=== PATIENT | female | born 1995 | race African-American/Black ===

== ENCOUNTER 2016-11-28 16:38 | Emergency (ER) | payer OTHER ==
[2016-11-28 16:58] VITALS: BP 138/75
[2016-11-28] MEDS ORDERED: Ibuprofen TAB* 600 MG PO ONE (17:14)
--- NOTE | 2016-11-28 17:14 | UC ---
Hand/Wrist HPI - HPI Summary HPI Summary: Broke up a fight between here to dogs this afternoon---multiple bites to both hand - History Of Current Complaint Chief Complaint: UCBiteInjury Stated Complaint: DOG BITE Time Seen by Provider: 11/28/16 17:10 Hx Obtained From: Patient Hx Last Menstrual Period: 11/24 ?: No Mechanism Of Injury: dog bites Onset/Duration: Sudden Onset, Lasting Hours, Still Present Severity Initially: Moderate Severity Currently: Moderate Pain Intensity: 7 Pain Scale Used: 0-10 Numeric Character Of Pain: Aching Aggravating Factor(s): Movement Alleviating: Rest Associated Signs And Symptoms: Positive: Negative Related History: Dominant Hand Right - Allergies/Home Medications Allergies/Adverse Reactions: Allergies Allergy/AdvReac Type Severity Reaction Status Date / Time No Known Allergies Allergy Verified 11/28/16 16:57 PMH/Surg Hx/FS Hx/Imm Hx Previously Healthy: Yes - Surgical History Surgical History: None - Family History Known Family History: Positive: None - Social History Occupation: Employed Full-time Lives: With Family Alcohol Use: Rare Substance Use Type: None Smoking Status (MU): Never Smoked Tobacco - Immunization History Hx Tetanus, Diphtheria Vaccination: Yes Vaccination Up to Date: Yes Review of Systems Constitutional: Negative Skin: Other - multiple small laceration and pw to both hand laceration left wrist Eyes: Negative ENT: Negative Respiratory: Negative Cardiovascular: Negative Gastrointestinal: Negative Genitourinary: Negative Motor: Negative Neurovascular: Negative Musculoskeletal: Arthralgia - both hands Neurological: Negative Psychological: Negative All Other Systems Reviewed And Are Negative: Yes Physical Exam Triage Information Reviewed: Yes Appearance: Well-Nourished, Ill-Appearing, Pain Distress - mild Vital Signs: Initial Vital Signs Temp 98.6 F 11/28/16 16:53 Pulse 106 11/28/16 16:53 Resp 18 11/28/16 16:53 BP 138/75 11/28/16 16:53 Pulse Ox 100 11/28/16 16:53 Vital Signs Reviewed: Yes Eye Exam: Normal Eyes: Positive: Conjunctiva Clear ENT Exam: Normal ENT: Positive: Normal ENT inspection, Hearing grossly normal, Pharynx normal, TMs normal. Negative: Nasal congestion, Nasal drainage, Tonsillar swelling, Tonsillar exudate, Trismus, Muffled/hoarse voice Dental Exam: Normal Neck exam: Normal Neck: Positive: Supple, Nontender, No Lymphadenopathy Respiratory Exam: Normal Respiratory: Positive: Chest non-tender, Lungs clear, Normal breath sounds, No respiratory distress, No accessory muscle use Cardiovascular Exam: Normal Cardiovascular: Positive: RRR, No Murmur, Pulses Normal, Brisk Capillary Refill Musculoskeletal Exam: Normal Musculoskeletal: Positive: Strength Intact, ROM Intact, No Edema Neurological Exam: Normal Neurological: Positive: Alert, Muscle Tone Normal Psychological Exam: Normal Skin: Positive: significant lesion(s) - multiple small and superfical laceration to right and left hand--3 inch laceration to left wrist, n/m/c intact in all fingers Procedures - Laceration/Wound Repair 1 Location: upper extremity - left wrist Description: Linear Anesthesia: 1.0% Length, Depth and Shape: 3 inches, linear Betadine Prep?: Yes Irrigated w/ Saline (ccs): 250 Laceration/Wound Explored: clean, no foreign body removed Closure: Single Layer Suture Type: Prolene Number of Sutures: 8 - 6 on laceration 1 each on 2 small wounds near left thumb Layer Closure?: No Sterile Dressing Applied?: Yes Re-Evaluation - Re-Evaluation First Eval Change: Improved - tolerated sutures well-all other wounds closed with steri strips, and dsd appled, Hand/Wrist Course/Dx - Course Course Of Treatment: Dsressing, Augmentin, soap and water wash follow with Dr. Bardlaes elevate rest - Differential Dx/Diagnosis Differential Diagnosis/HQI/PQRI: Contusion, Fracture, Puncture Wound, Other - laceration Provider Diagnoses: Multiple dog bites both hands--3 sutured wound left hand 3 inch laceration left wrist and .5 cm lacerations times 2 near left thumb Discharge - Discharge Plan Condition: Stable Disposition: HOME Prescriptions: Amoxicillin/Clavulanate TAB* [Augmentin TAB 875*] 875 mg PO BID #19 tab Patient Education Materials: Ibuprofen (By mouth), Diphtheria/Acellular Pertussis/Tetanus Booster Vaccine (By injection), Animal Bite (ED), Care For Your Stitches (ED), Laceration (ED), Steristrips (ED) Forms: *Work Release Referrals: Emely Bardales MD [Medical Doctor] - 4 Days
[2016-11-28] MEDS ORDERED: Tetan/Diph/Pertus SYR(Tdap)* 0.5 ML SYR(BOOSTRIX) use SYR IM ONE (17:15)
[2016-11-28] MEDS ORDERED: Amoxicillin/Clavulanate TAB* 875 MG PO ONE (17:15)
--- NOTE | 2016-11-28 17:47 | RAD ---
INDICATION: Dog bite left hand injury COMPARISON: None TECHNIQUE: AP, lateral, and oblique views were obtained. FINDINGS: There is no acute fracture. The joint spaces are maintained. There is a laceration about the ulnar and dorsal aspect of the wrist with soft tissue swelling a small amount of subcutaneous emphysema along the dorsum of the hand. IMPRESSION: SOFT TISSUE INJURY/LACERATION. NO RADIOPAQUE FOREIGN BODY. NO ACUTE BONY CHANGE.
--- NOTE | 2016-11-28 17:48 | RAD ---
INDICATION: Dog bite RIGHT hand COMPARISON: None TECHNIQUE: AP, lateral, and oblique views were obtained. FINDINGS: The bony structures, joint spaces, and soft tissues are normal for age. IMPRESSION: NEGATIVE EXAMINATION.
[2016-11-28] MEDS ORDERED: Lidocaine 1% MPF* 2 ML VIAL ONE (17:59)
[2016-11-28] MEDS ORDERED: HYDROcodone/ACETAMIN 5-325 MG* 1 TAB PO ONE (18:58)
== END 2016-11-28 19:20 | disposition home or self-care (01) ==
LOC: UCEAST 16:38
DX: S61.412A Laceration without foreign body of left hand, initial encounter (principal); S61.411A Laceration without foreign body of right hand, initial encounter; S61.012A Laceration without foreign body of left thumb without damage to nail, initial encounter; S61.512A Laceration without foreign body of left wrist, initial encounter; W54.0XXA Bitten by dog, initial encounter; Y93.89 Activity, other specified; Y92.9 Unspecified place or not applicable; Z23 Encounter for immunization
CPT/HCPCS: 12002; 12031; 90471; 90715; 99213; A9270-GY; G0463

== ENCOUNTER 2019-03-28 12:47 | Inpatient (IN) | payer OTHER ==
[2019-03-28] MEDS ORDERED: Dinoprostone* 10 MG VAG.SUPP VAGINAL ONE (12:59)
--- NOTE | 2019-03-28 13:36 | HP ---
General Information - Reason for Visit IUP at 41 weeks here for post dates ripening and induction of labor - General Information Maternal Age: 23 Grav: 1 Para: 0 SAB: 0 IEA: 0 Estimated Due Date: 03/21/19 Determined By: Early Ultrasound Maternal Blood Type and Rh: O Positive - Results this Serology/RPR Result: Non-Reactive Rubella Result: Immune HBsAg Result: Negative HIV Result: Negative GBS Culture Result: Negative Past Medical History Delivery History: See Records Delivery History Comment: Primip Pertinent Past Medical History: See Records Past Medical History Comment: Childhood asthma Eczema Pertinent Past Surgical History: None Pertinent Family History: See Records Family History Comment: PGM: , DM - Antepartal Records Antepartal Records: Reviewed, Uncomplicated Review of Systems Constitutional: Comfortable CV Complaint: No Respiratory: Shortness of Breath: No Gastrointestinal: No Nausea/Vomiting, Normal Bowel Movement Genitourinary: No Dysuria, No Bleeding, No Leaking Fluid Musculoskeletal: No Complaint, No Epigastric Pain Neurological: No Headache, No Visual Changes Movement: Normal Exam Allergies/Adverse Reactions: Allergies No Known Allergies Allergy (Verified 03/28/19 13:19) BP 128/78 HR 105 RR 16 T 98.5 SpO2 98% on RA - Measurements Height: 5 ft 6 in Weight: 218 lb Weight in lbs: 218.059013 Body Mass Index (BMI): 35.2 Pre- Weight: 155 lb Weight Gained This : 63 lbs and 0 ozs - Exam Breast: Breast Exam Deferred CVA: No CVA Tenderness Extremities: No Edema Heart: Normal Rhythm/Heart Sounds HEENT: No Significant Findings Lungs: Clear Bilaterally Rectal: Rectal Exam Deferred Reflexes: DTR 2+ Thyroid: No Thyromegaly - Abdominal Exam Abdomen Exam: Non-Tender - Ultrasound/Biophysical Profile Ultrasound Status: Not Done Targeted Exam Findings See L&D Outpatient Visit Provider Note for Findings: N/A Estimated Weight: EFW 7.5 lbs by Annalisa Cervical Exam: 1cm Effacement: 70% Station: -1 Presenting Part: Vertex Membrane Status: Intact Sterile Speculum Exam: Not done Bleeding/Discharge: None EFM Findings - External Monitor Findings Baseline Heart Rate: 135 External Monitor Findings: Accelerations Present, No Pattern of Variable or Late Decelerations, Variability Moderate, Baseline Stable, Accelerations Absent External Monitor Findings Comment: No evidence of metabolic acidemia Contractions: None Assessment/Plan - Assessment IUP at 41 weeks with an unfavorable cervix, recommend trial of cervical ripening No evidence of metabolic acidemia - Obstetrical Risk Factors Obstetrical Risk Factors: - Plan Plan: Cervical Ripening, Admit - Anticipate Vaginal Delivery Plan Comment: PARQ Cervidil and all ?s answered. Pt and FOB agree to placement. Monitor per protocol. Re-eval in 12-18 hours or sooner PRN onset active labor, tachysystole or intolerance - Date/Time of Admission Date of Admission: 03/28/19 Time of Admission: 13:08
[2019-03-28 17:06] LABS: Urine Benzodiazepine Screen None Detected (None Detect); Urine Opiates Screen None Detected (None Detect)
[2019-03-28] MEDS ORDERED: Nalbuphine* 10 MG/ML 1 ML VIAL IV ONE (22:33)
[2019-03-28] MEDS ORDERED: Promethazine INJ(RESTRICTED)* 25 MG/ML 1 ML VIAL IV ONE (22:34)
[2019-03-28] MEDS ORDERED: Lactated Ringers 1000 ML Bag* 1,000 ML IV ONE (22:35)
--- NOTE | 2019-03-28 22:40 | PN ---
Progress Note - Progress Note Date of Service: 03/28/19 Note: S: Pt reports increased cramping and discomfort. Requests VE O: BP 129/79 HR 117 RR 18 T 99.2 FHT 135bpm. Moderate variability. +Accels. No decels UCs mild, irregular with some irritability VE 2cm/80%/vtx -1, Cervidil remains in place A: IUP at 41 weeks in latent labor No evidence of metabolic acidemia P: Discussed pain relief options given pt's level of discomfort in latent labor phase. PARQ IV pain relief. Desires trial of IV Nubain/Phenergan. Orders for IV , labs and pain relief input. Will continue to monitor closely for onset active labor, tachysystole or concerns. Consider removal of Cervidil PRN. Pt and FOB agree.
[2019-03-28 22:55] LABS: ABS Lymphocytes 1.5 10^3/ul (1.0-4.8); ABS Monocytes 0.9 10^3/ul (0-0.8); ABS Neutrophils 6.7 10^3/ul (1.5-7.7); Eosinophil % 0.1 %; Hematocrit 32 % (35-47); Hemoglobin 10.7 g/dL (12.0-16.0); Lymphocyte % 16.5 %; Mean Corpuscular HGB Conc 34 g/dL (31-36); Mean Corpuscular Hemoglobin 30 pg (27-31); Mean Corpuscular Volume 87 fL (80-97); Mean Platelet Volume 7.8 fL (7.4-10.4); Nucleated Red Blood Cells % 0.1; Platelet Count 301 10^3/uL (150-450); Red Blood Count 3.63 10^6 /uL (3.70-4.87); Red Cell Distribution Width 16 % (10-15); White Blood Count 9.1 10^3/uL (3.5-10.8)
--- NOTE | 2019-03-29 05:45 | PN ---
Progress Note - Progress Note Date of Service: 03/29/19 Note: S: Pt more uncomfortable s/p cervidil removal at approx 0315 by RN. Was able to sleep some with Nubain and Phenergan but not anymore Opted not to get in the tub. In right lateral in bed breathing through UCs O: BP 129/79 HR 117 T 99.2 FHT 135bpm. Moderate variability. +Accels. No decels UCs q 2-4 VE 4-5/100%/vtx -1, BBOW A: IUP at 41-1/7 in labor No evidence of metabolic acidemia P: Pt desires epidural. Anesthesia paged for consult.
[2019-03-29] MEDS ORDERED: OBEPIDURAL* 250 ML EPIDURAL ONE (05:52)
[2019-03-29] MEDS ORDERED: Lactated Ringers 1000 ML Bag* 1,000 ML IV ONE (06:44)
[2019-03-29] MEDS ORDERED: Famotidine TAB* 20 MG PO PRN (06:44)
[2019-03-29] MEDS ORDERED: Phenylephrine 40 MCG/ML SYRINGE IV PUSH PRN ×2 (06:44)
[2019-03-29] MEDS ORDERED: Lactated Ringers 1000 ML Bag* 500 ML IV PRN ×2 (06:44)
[2019-03-29] MEDS ORDERED: EPHEDrine (Pressors)* 50 MG/ML VIAL IV PUSH PRN ×2 (06:44)
[2019-03-29] MEDS ORDERED: Sodium Citrate/Citric Acid* 15 ML UDC PO PRN (06:44)
[2019-03-29] MEDS ORDERED: OBEPIDURAL* 250 ML EPIDURAL SCH (07:00)
[2019-03-29] MEDS ORDERED: Lactated Ringers 1000 ML Bag* 1,000 ML IV SCH ×2 (07:00→17:00)
--- NOTE | 2019-03-29 07:06 | PN ---
Progress Note - Progress Note Date of Service: 03/29/19 Note: S: Pt comfortable s/p CEI placement O: BP 110/57 HR 120 (maternal pulse running 115-130's by pulse ox) SpO2 100% on RA FHT 135bpm. Moderate variability. +Accels. Rare early type decels UCs q 2-5 VE 8cm/100%/vtx -1 A: IUP at 41-1/7 in labor No evidence of metabolic acidemia P: Close monitoring of maternal/ status. Enc rest. Anticipate trial of pushing soon. Report to Catherine German CNM who will be assuming care at 0800
--- NOTE | 2019-03-29 11:02 | PN ---
Progress Note - Progress Note Date of Service: 03/29/19 Note: S: Reports feeling more pressure with contractions, wincing through them O: B/P: 124/77, P: 121, R: 16, T: 99.1 FHR: baseline 140, moderate variability, early decelerations, occasional variable decelerations, occasional late decelerations UCs: q3-5 min, moderate to palpation VE: 9.5/100/-2 A: IUP at 41 1/7 weeks Category II FHR, doubt metabolic acidemia Active labor/transition P: Reposition to promote descent, pt now in throne position Will await pressure in between UCs Reassess PRN Anticipate SVB
--- NOTE | 2019-03-29 13:03 | PN ---
Progress Note - Progress Note Date of Service: 03/29/19 Note: S: Reports UCs are more painful than before, but not feeling more pelvic pressure O: B/P: 135/87, P: 118, R: 16, T: 99.9 FHR: baseline 145, moderate variability, early decelerations, + accelerations UCs: q3-6 min, mild-moderate to palpation VE: 9.5/100/-2. AROM to clear fluid. A: IUP at 41 1/7 weeks Category I FHR, no evidence of metabolic acidemia Active labor P: Repositioned on right side to promote comfort and labor progress Dr. Chambers paged to evaluate epidural site Reassess PRN Anticipate SVB
[2019-03-29] MEDS ORDERED: Oxytocin in LR* 20 UNITS/1,000 ML BAG IVPB ONE (14:18)
--- NOTE | 2019-03-29 14:18 | PN ---
Progress Note - Progress Note Date of Service: 03/29/19 Note: S: Still uncomfortable post-epidural bolus. Resting on her left side with peanut ball O: B/P: 141/85, P: 128, R: 18, T: 99.8 FHR: baseline 140, moderate variability, no accels, early decelerations UCs: q 4-5 min, moderate to palpation VE: 10/100/-1, clear fluid A: IUP at 41 1/7 weeks Category I FHR, no evidence of metabolic acidemia P: Discussed low-dose pitocin to encourage adequate contraction pattern, Paulette agrees to trial Will begin pushing Anticipate SVB
[2019-03-29] MEDS ORDERED: Oxytocin in LR* 20 UNITS/1,000 ML BAG IVPB SCH ×2 (15:00→17:00)
[2019-03-29] MEDS ORDERED: ceFAZolin 2 GM PREMIX in ORs 0 GM/0 ML BAG ONE (15:55)
[2019-03-29] MEDS ORDERED: ceFOXitin 2 GM IVPREMIX* 2 G/50 ML BAG IVPB ONE (15:56)
[2019-03-29] MEDS ORDERED: Glycerin ADULT SUPP PR PRN (16:23)
[2019-03-29] MEDS ORDERED: Acetaminophen TAB* 325 MG PO PRN (16:23)
--- NOTE | 2019-03-29 16:33 | PROCNOTE ---
[facility] OB: Delivery Note - Delivery A Date of : 03/29/19 Time of : 15:34 [place] Sex: Male Score 1 Minute: 5 Score 5 Minutes: 9 Gestational Age in Weeks and Days at Delivery: 41 Weeks and 1 Days Delivery Method: Spontaneous Vaginal Labor: Induced Did Patient attempt ?: N/A, No Previous Amniotic Fluid: Clear Estimated Blood Loss: 250 Anesthesia/Analgesia: CEI for Labor Anesthesia Comment: Dr. Layton Delivered By: Catherine German - Nursery Level of Nursery: Regular/Bedside - Perineum Perineal Injury: 2nd Degree Perineal Injury Comment: and bilateral labial lacerations Perineal Repair: By Delivering Practioner - perineal laceration only - Events Delivery Events of Note: Pitocin During Labor, Shoulder Dystocia - resolved with McRobert's maneuver and strong maternal effort, Retained Placenta, Manual Removal of Placenta - Additional Delivery Notes Additional Delivery Notes: received cervidil ripening for Postdates . Received CEI by Dr Layton per pt request with good relief initially, bolused by Dr. Chambers. AROM at 1250 to clear fluid, progressed to complete, received pitocin for augmentation of second stage and began pushing with good maternal effort at 1424. Slow controlled delivery of infant head RICKY, loose nuchal cord x1 reduced. Dystocia of infant's shoulders lasting 3 minutes, resolved with McRobert's position, rotation of infant's shoulders using wood's screw maneuver, and strong maternal effort. to maternal abdomen, initially stunned with no spontaneous cry. HR >110, Apgars 5, 9 and 9. Cord doubly clamped and cut by schedule checker, infant to warmer for stimulation. Spontaneous cry, male infant returned to mother's chest. Long umbilical cord noted. Gentle traction on umbilical cord led to cord avulsion, placenta retained and Dr. Dykes called for examination. Placenta manually removed by Dr. Dykes, noted to be adherent. Pitocin increased to 250 cc/hr to control brisk bleeding. vagina and perineum carefully inspected, second degree laceration noted as well as bilateral labial lacerations. Second degree laceration repaired with 3-0 vicryl rapide under local and epidural analgesia. Fundus firm with massage. initiated, mother and stable at time of note. EBL = 450cc
[2019-03-29] MEDS ORDERED: Simethicone TAB* 80 MG TAB.CHEW PO SCH (17:30)
[2019-03-29] MEDS: Dibucaine 1% 28.35 GM TUBE PR PRN (18:10)
[2019-03-29] MEDS: Witch Hazel PAD* JAR TOPICAL PRN (18:11)
[2019-03-29] MEDS: Ibuprofen TAB* 600 MG PO SCH (18:11)
[2019-03-29] MEDS ORDERED: Lidocaine 1% INJ* 10 MG/ML 30 ML SDV ONE (18:31)
[2019-03-29] MEDS: Docusate CAP* 100 MG PO SCH (20:54)
--- NOTE | 2019-03-29 21:20 | OP ---
DATE OF OPERATION: 03/29/19 - ROOM #105 DATE OF : 89 SURGEON: Latesha Dykes MD PRE-OP DIAGNOSIS: Retained placenta. POST-OP DIAGNOSIS: Retained placenta. OPERATIVE PROCEDURE: Manual extraction of placenta. ESTIMATED BLOOD LOSS: 400 cc. URINE OUTPUT: Not recorded. FLUIDS: Not recorded. DESCRIPTION OF PROCEDURE: A request was made for attendance to delivery of placenta as the cord had avulsed from the placenta. Under epidural for anesthesia, the placenta was then palpated and felt to be densely adherent in the posterior and lower anterior median wall. It was manually extracted. Uterine cavity was explored and noted to be free of any membranes or placental tissue. The patient will receive dose of cefoxitin 2 g IV after manual extraction of placenta. The patient tolerated the procedure well and remains in the recovery room post delivery. [id number]/CPS #: [id number] MTDD
[2019-03-30] MEDS: Ibuprofen TAB* 600 MG PO SCH ×4 (00:04→21:48)
[2019-03-30 06:24] LABS: ABS Lymphocytes 2.5 10^3/ul (1.0-4.8); ABS Monocytes 1.2 10^3/ul (0-0.8); ABS Neutrophils 11.1 10^3/ul (1.5-7.7); Eosinophil % 0.1 %; Hematocrit 26 % (35-47); Hemoglobin 8.8 g/dL (12.0-16.0); Mean Corpuscular HGB Conc 33 g/dL (31-36); Mean Corpuscular Hemoglobin 29 pg (27-31); Mean Corpuscular Volume 88 fL (80-97); Mean Platelet Volume 7.7 fL (7.4-10.4); Platelet Count 270 10^3/uL (150-450); Red Blood Count 3.02 10^6 /uL (3.70-4.87); Red Cell Distribution Width 16 % (10-15); White Blood Count 14.8 10^3/uL (3.5-10.8)
[2019-03-30] MEDS: Docusate CAP* 100 MG PO SCH ×3 (08:16→21:48)
[2019-03-30] MEDS: Ferrous Gluconate TAB* 324 MG TAB PO SCH ×2 (08:16→21:48)
[2019-03-31 08:35] LABS: ABS Eosinophils 0.1 10^3/ul (0-0.6); ABS Lymphocytes 1.7 10^3/ul (1.0-4.8); ABS Monocytes 0.6 10^3/ul (0-0.8); ABS Neutrophils 5.9 10^3/ul (1.5-7.7); Eosinophil % 0.8 %; Hematocrit 25 % (35-47); Hemoglobin 8.5 g/dL (12.0-16.0); Lymphocyte % 20.8 %; Mean Corpuscular HGB Conc 34 g/dL (31-36); Mean Corpuscular Hemoglobin 30 pg (27-31); Mean Corpuscular Volume 88 fL (80-97); Mean Platelet Volume 7.7 fL (7.4-10.4); Nucleated Red Blood Cells % 0.1; Platelet Count 271 10^3/uL (150-450); Red Blood Count 2.85 10^6 /uL (3.70-4.87); Red Cell Distribution Width 16 % (10-15); White Blood Count 8.4 10^3/uL (3.5-10.8)
[2019-03-31 08:45] VITALS: BP 118/77
[2019-03-31] MEDS: Docusate CAP* 100 MG PO SCH (09:40)
[2019-03-31] MEDS: Ferrous Gluconate TAB* 324 MG TAB PO SCH (09:40)
[2019-03-31] MEDS: Ibuprofen TAB* 600 MG PO SCH (09:40)
[2019-03-31] MEDS: Dibucaine 1% 28.35 GM TUBE PR PRN (09:41)
[2019-03-31] MEDS: Witch Hazel PAD* JAR TOPICAL PRN (09:41)
== END 2019-03-31 11:21 | disposition home or self-care (01) | DRG 541 ==
LOC: MCHOBOUT 12:47 → MCHOB 13:08
PROVIDERS: ADMIT Midwife; ATTEND Midwife
PROC: 10E0XZZ Delivery of Products of Conception, External Approach (ICD-10-PCS; principal; 2019-03-29)
PROC: 3E033VJ Introduction of Other Hormone into Peripheral Vein, Percutaneous Approach (ICD-10-PCS; 2019-03-29)
PROC: 10907ZC Drainage of Amniotic Fluid, Therapeutic from Products of Conception, Via Natural or Artificial Opening (ICD-10-PCS; 2019-03-29)
PROC: 0KQM0ZZ Repair Perineum Muscle, Open Approach (ICD-10-PCS; 2019-03-29)
PROC: 10D17Z9 Manual Extraction of Products of Conception, Retained, Via Natural or Artificial Opening (ICD-10-PCS; 2019-03-29)
DX: O48.0 Post-term pregnancy (principal); O72.2 Delayed and secondary postpartum hemorrhage; Z37.0 Single live birth; O70.1 Second degree perineal laceration during delivery; O66.0 Obstructed labor due to shoulder dystocia; O69.81X0 Labor and delivery complicated by cord around neck, without compression, not applicable or unspecified; Z3A.41 41 weeks gestation of pregnancy
CPT/HCPCS: 36415; 80307; 85025; 86850; 86900; 86901; A9270-GY; J0690; J0694; J2300; J2550